=== PATIENT | female | born 1955 | race Caucasian/White ===

== ENCOUNTER 2021-01-17 14:26 | Outpatient (CLI) | payer MEDICARE, OTHER, SELFPAY | END 2021-01-17 14:27 | disposition home or self-care (01) | LOC: ANHAUDIO 14:28 | PROVIDERS: PCP Family Medicine; Visit Provider Otolaryngology | DX: H91.90 Unspecified hearing loss, unspecified ear (principal) | CPT/HCPCS: 92557; 92567 ==